=== PATIENT | male | born 1965 | race African-American/Black ===

== ENCOUNTER 2016-12-26 22:32 | Emergency (ER) | payer OTHER ==
[~2016-12-26] VITALS: Ht 162.6 cm; Wt 87.4 kg
[~2016-12-26 22:32] MED LIST: PENICILLN VK500 MG OR; PRILOSEC20 MG OR; ZOFRAN ODT8 MG SL
[2016-12-27] MEDS ORDERED: ULTRAM50 M1 PO (00:05)
[2016-12-27 00:25] VITALS: BP 146/68
== END 2016-12-27 00:25 | disposition home or self-care (01) | DRG 605 ==
LOC: ED 22:32
DX: S20.211A Contusion of right front wall of thorax, initial encounter (principal); W17.89XA Other fall from one level to another, initial encounter; Y93.89 Activity, other specified

== ENCOUNTER 2022-06-15 20:37 | Emergency (ER) | payer SELFPAY ==
[~2022-06-15] VITALS: Ht 162.6 cm; Wt 114.0 kg
[~2022-06-15 20:37] MED LIST changes: +ULTRAM50 M1 PO
[2022-06-15 21:26] VITALS: BP 144/81
[2022-06-15 21:31] VITALS: BP 140/77
[2022-06-15 21:46] VITALS: BP 145/77
[2022-06-15 22:01] VITALS: BP 131/79
[2022-06-15 22:16] VITALS: BP 137/76
[2022-06-15] MEDS ORDERED: VOLTAREN75 MG PO (22:37)
== END 2022-06-15 23:05 | disposition home or self-care (01) | DRG 556 ==
LOC: ED 20:37
DX: M25.561 Pain in right knee (principal)